=== PATIENT | female | born 2000 | race Caucasian/White ===

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

== ENCOUNTER 2022-01-01 21:23 | Emergency (ER) | payer OTHER ==
[~2022-01-01] VITALS: Ht 165.1 cm; Wt 61.2 kg
[2022-01-01 21:55] VITALS: BP 134/78
[2022-01-01] MEDS ORDERED: ASHLYNA 0.15-01 EAC1 PO (21:56)
== END 2022-01-02 00:15 | disposition home or self-care (01) ==
LOC: ED 21:23
DX: S61.212A Laceration without foreign body of right middle finger without damage to nail, initial encounter (principal); S61.214A Laceration without foreign body of right ring finger without damage to nail, initial encounter; Z79.899 Other long term (current) drug therapy; W25.XXXA Contact with sharp glass, initial encounter; Y93.89 Activity, other specified; Y92.69 Other specified industrial and construction area as the place of occurrence of the external cause; Y99.9 Unspecified external cause status

== ENCOUNTER → 2023-02-03 | Outpatient (CLI) | payer BC ==
[~2023-02-03] MED LIST changes: +ASHLYNA 0.15-01 EAC1 PO
[2023-02-03 12:57] LABS: BASO # 0.1 10*3/uL (0.0-0.1); BASO % 1.1 % (0.0-1.0); EOS # 0.1 10*3/uL (0.0-0.4); EOS % 2.3 % (1.0-4.0); HEMATOCRIT 38.2 % (37.0-47.0); LYMPH # 1.8 10*3/uL (1.3-4.4); LYMPH % 33.6 % (27.0-41.0); MEAN CELL VOLUME 86.8 fl (81.0-99.0); MEAN CORPUSCULAR HGB 29.3 pg (27.0-31.0); MEAN CORPUSCULAR HGB CONC 33.8 g/dl (33.0-37.0); MEAN PLATELET VOLUME 9.6 fl (9.6-12.3); MONO # 0.4 10*3/uL (0.1-1.0); MONO % 6.6 % (3.0-9.0); NEUT % 55.8 % (47.0-73.0); PLATELET COUNT AUTOMATED 280 10*3/uL (130-400); RED CELL DISTRI WIDTH 12.3 % (0-14.5); WHITE BLOOD COUNT 5.3 10*3/uL (4.8-10.8)
[2023-02-03 13:27] LABS: ALKALINE PHOSPHATASE 48 U/L (46-116); BUN 8 mg/dl (9-23); CHLORIDE 108 mmol/L (98-107); CHOLESTEROL 146 mg/dL (<200); FREE T4 1.02 ng/dl (0.89-1.76); LDL CHOLESTEROL 82 mg/dL (9-159); POTASSIUM 4.1 mmol/L (3.4-5.1); SGPT/ALT 45 U/L (10-49); TOTAL PROTEIN 7.6 gm/dL (6.0-8.0); TRIGLYCERIDES 80 mg/dl (<150)
== END | disposition home or self-care (01) ==
LOC: US 12:30 → LAB 12:39
PROVIDERS: ATTEND Internal Medicine
DX: E04.8 Other specified nontoxic goiter (principal); F41.8 Other specified anxiety disorders; Z13.0 Encounter for screening for diseases of the blood and blood-forming organs and certain disorders involving the immune mechanism; Z13.1 Encounter for screening for diabetes mellitus; Z13.21 Encounter for screening for nutritional disorder; Z13.220 Encounter for screening for lipoid disorders; Z13.29 Encounter for screening for other suspected endocrine disorder; Z13.6 Encounter for screening for cardiovascular disorders; Z13.89 Encounter for screening for other disorder; R53.83 Other fatigue; R63.5 Abnormal weight gain

== ENCOUNTER → 2023-02-13 | Outpatient (CLI) | payer BC | END | disposition home or self-care (01) | LOC: NM 02-10 11:00 | PROVIDERS: ATTEND Internal Medicine | DX: R74.01 Elevation of levels of liver transaminase levels (principal) ==

== ENCOUNTER 2024-07-11 07:35 | Emergency (ER) | payer BC ==
[~2024-07-11] VITALS: Ht 170.1 cm; Wt 78.0 kg
[2024-07-11 07:46] VITALS: BP 128/79
[2024-07-11] MEDS ORDERED: Acetaminophen/Oxycodone 5 MG/325 MG TABLET PO ONE (08:10)
[2024-07-11 08:29] LABS: HEMATOCRIT 39.8 % (37.0-47.0); MEAN CELL VOLUME 87.9 fl (81.0-99.0); MEAN CORPUSCULAR HGB 28.7 pg (27.0-31.0); MEAN CORPUSCULAR HGB CONC 32.7 g/dl (33.0-37.0); MEAN PLATELET VOLUME 10.3 fl (9.6-12.3); PLATELET COUNT AUTOMATED 179 10*3/uL (130-400); RED BLOOD COUNT 4.53 10*6/uL (4.10-5.10); RED CELL DISTRI WIDTH 12.6 % (0-14.5); WHITE BLOOD COUNT 5.3 10*3/uL (4.8-10.8)
[2024-07-11 08:30] LABS: MANUAL DIFF REFLEX YES
[2024-07-11] MEDS ORDERED: SODIUM CHLORIDE 0.9% 1,000 ML IV ONE (08:30)
[2024-07-11 08:48] LABS: BUN 10 mg/dl (9-23); CHLORIDE 107 mmol/L (98-107); POTASSIUM 3.9 mmol/L (3.4-5.1)
[2024-07-11 09:24] LABS: ATYPICAL LYMPHS 3 % (0-0); BASOPHILS 1 % (0-1); PLATELET SUFFICIENCY NORMAL (NORMAL); TOTAL CELLS COUNTED 100 #CELLS
[2024-07-11] MEDS ORDERED: CLINDAMYCIN HC300 MG PO (10:04)
[2024-07-11] MEDS ORDERED: AMOX-CLAV 875-1 EACH PO (10:04)
[2024-07-11] MEDS ORDERED: BUPROPION HYDR150 M3 PO (22:16)
== END 2024-07-11 10:18 | disposition home or self-care (01) ==
LOC: ED 07:35
PROVIDERS: Internal Medicine
DX: I88.9 Nonspecific lymphadenitis, unspecified (principal)

== ENCOUNTER 2024-07-11 19:21 | Observation (INO) | payer BC ==
[~2024-07-11] VITALS: Ht 170.2 cm; Wt 79.4 kg
[~2024-07-11 19:21] MED LIST changes: +AMOX-CLAV 875-1 EACH PO; +CLINDAMYCIN HC300 MG PO
[2024-07-11 19:37] VITALS: BP 138/87
[2024-07-11] MEDS ORDERED: Ketorolac Tromethamine 30 MG/ML VIAL IV ONE (19:50)
[2024-07-11] MEDS ORDERED: IOHEXOL 300 MG/ML 100 ML VIAL IV ONE (19:55)
[2024-07-11 20:14] LABS: HEMATOCRIT 39.2 % (37.0-47.0); MANUAL DIFF REFLEX YES; MEAN CELL VOLUME 86.7 fl (81.0-99.0); MEAN CORPUSCULAR HGB 28.5 pg (27.0-31.0); MEAN CORPUSCULAR HGB CONC 32.9 g/dl (33.0-37.0); MEAN PLATELET VOLUME 10.5 fl (9.6-12.3); PLATELET COUNT AUTOMATED 192 10*3/uL (130-400); RED BLOOD COUNT 4.52 10*6/uL (4.10-5.10); RED CELL DISTRI WIDTH 12.6 % (0-14.5); WHITE BLOOD COUNT 5.3 10*3/uL (4.8-10.8)
[2024-07-11 20:32] LABS: ALKALINE PHOSPHATASE 59 U/L (46-116); BUN 6 mg/dl (9-23); CHLORIDE 107 mmol/L (98-107); POTASSIUM 3.7 mmol/L (3.4-5.1); SGPT/ALT 49 U/L (5-49); TOTAL PROTEIN 7.3 gm/dL (6.0-8.0)
[2024-07-11 20:53] LABS: ATYPICAL LYMPHS 2 % (0-0); BASOPHILS 2 % (0-1); PLATELET SUFFICIENCY NORMAL (NORMAL); TOTAL CELLS COUNTED 100 #CELLS
[2024-07-11] MEDS ORDERED: Ampicillin Sodium/Sulbactam 3 GM in SODIUM CHLORIDE 0.9% 100 ML IV ONE (22:00)
[2024-07-11] MEDS ORDERED: BUPROPION HYDR150 M3 PO (22:16)
[2024-07-11 23:03] VITALS: BP 128/74
[2024-07-12] MEDS ORDERED: HYDROmorphONE Hydrochloride 0.5 MG/0.5 ML SYRINGE IV PRN (01:30)
[2024-07-12 02:45] VITALS: BP 125/80
[2024-07-12 05:16] VITALS: BP 137/84
[2024-07-12] MEDS ORDERED: Piperacillin Sodium/Tazobact 50 ML IV SCH (08:10)
[2024-07-12] MEDS ORDERED: SODIUM CHLORIDE 0.9% 1,000 ML IV ONE (08:10)
[2024-07-12] MEDS ORDERED: Doxycycline Hyclate 100 MG in SODIUM CHLORIDE 0.9% 250 ML IV SCH (10:00)
[2024-07-12] MEDS ORDERED: HYDROmorphONE Hydrochloride 0.5 MG/0.5 ML SYRINGE IV SCH (12:00)
[2024-07-12 12:04] VITALS: BP 108/48
[2024-07-12 17:45] VITALS: BP 141/82
[2024-07-12 20:00] VITALS: BP 106/72
[2024-07-13] VITALS: BP 119/58
[2024-07-13 08:00] VITALS: BP 129/66
[2024-07-13 09:15] LABS: BASO % 0.7 % (0.0-1.0); EOS # 0.2 10*3/uL (0.0-0.4); HEMATOCRIT 39.9 % (37.0-47.0); MEAN CELL VOLUME 87.7 fl (81.0-99.0); MEAN CORPUSCULAR HGB 28.6 pg (27.0-31.0); MEAN CORPUSCULAR HGB CONC 32.6 g/dl (33.0-37.0); MONO # 0.3 10*3/uL (0.1-1.0); NEUT # 1.6 10*3/uL (2.3-7.9); NEUT % 37.6 % (47.0-73.0); PLATELET COUNT AUTOMATED 197 10*3/uL (130-400); RED BLOOD COUNT 4.55 10*6/uL (4.10-5.10); RED CELL DISTRI WIDTH 12.3 % (0-14.5); WHITE BLOOD COUNT 4.2 10*3/uL (4.8-10.8)
[2024-07-13 09:34] LABS: CHLORIDE 106 mmol/L (98-107)
[2024-07-13 09:35] LABS: BUN < 5 mg/dl (9-23)
[2024-07-13 12:00] VITALS: BP 124/63
[2024-07-13 16:00] VITALS: BP 122/72; BP 159/96
[2024-07-13 20:00] VITALS: BP 126/87
[2024-07-13] MEDS ORDERED: Acetaminophen/Hydrocodone 5 MG/325 MG TABLET PO PRN (20:45)
[2024-07-14] VITALS: BP 119/77
[2024-07-14 08:00] VITALS: BP 119/58
[2024-07-14] MEDS ORDERED: Amoxicillin/Clavulanate Pota 500 MG TAB PO SCH (10:00)
== END 2024-07-14 11:32 | disposition home or self-care (01) ==
LOC: ED 19:21 → 4E 22:05 → EDHOLD 22:05 → 4E 07-12 15:59
PROVIDERS: Physician Assistant Medical; ADMIT Internal Medicine; ATTEND Internal Medicine
DX: K11.20 Sialoadenitis, unspecified (principal); Z79.899 Other long term (current) drug therapy